=== PATIENT | male | born 1940 | race African-American/Black ===

== ENCOUNTER 2018-08-31 22:50 | Emergency (ER) | payer MEDICARE ==
[2018-08-31 23:39] LABS: #Eosinphils 0.1 thou/uL (0.0-0.7); #Lymphocytes 1.7 thou/uL (1.20-3.40); #Monocytes 0.5 thou/uL (0.11-0.59); #Neutrophils 4.8 thou/uL (1.40-6.50); %Basophils 0.4 % (0.0-1.0); %Eosinophils 1.3 % (0.0-10.0); %Lymphocytes 24.2 % (21.0-51.0); %Monocytes 6.5 % (0.0-10.0); %Neutrophils 67.6 % (42.0-75.0); Hemoglobin 13.7 g/dL (14.0-18.0); Mean Corpuscular HGB CONC 32.3 g/dL (32.0-36.0); Mean Corpuscular Hemoglobin 22.3 pg (27.0-31.0); Mean Corpuscular Volume 68.9 fL (78.0-98.0); Mean Platelet Volume 8.2 fL (7.4-10.4); Platelet Count 149 thou/uL (130-400); RBC Distribution Width 14.5 % (11.5-14.5); Red Blood Cell (RBC) Count 6.13 mill/uL (4.70-6.10); White Blood Cell (WBC) Count 7.1 thou/uL (4.8-10.8)
[2018-08-31 23:45] LABS: ALT (SGPT) 15 U/L (8-55); AST (SGOT) 26 U/L (5-34); Albumin 4.7 g/dL (3.4-4.8); Alkaline Phosphatase 75 U/L (40-150); Anion Gap 13 mmol/L (10-20); BUN (Urea Nitrogen) 28 mg/dL (8.4-25.7); Bilirubin, Total 0.5 mg/dL (0.2-1.2); Calc. Creatinine Clearance 0 mL/min (70-130); Calcium 9.7 mg/dL (7.8-10.44); Carbon Dioxide 23 mmol/L (23-31); Chloride 101 mmol/L (98-107); Estimated GFR-MDRD 46; Globulin 4.4 g/dL (2.4-3.5); Glucose 240 mg/dL (83-110); Lipase 54 U/L (8-78); Potassium 5.2 mmol/L (3.5-5.1); Protein, Total 9.1 g/dL (5.8-8.1); Sodium 132 mmol/L (136-145)
[2018-08-31] MEDS ORDERED: Pantoprazole 40 MG VIAL ONE (23:46)
[2018-09-01] MEDS ORDERED: Insulin Regular 300 UNITS/3 ML VIAL ONE (00:55)
--- NOTE | 2018-09-01 08:46 | ULT ---
PRELIMINARY REPORT/[facility]/EMERGENTY AFTER-HOURS PROCEDURE US Abdomen Limited, Right Upper Quadrant EXAM DATE/TIME: 09/01/2018 12:28 AM CLINICAL HISTORY: 77 years old, male; Pain and signs and symptoms; Constipation and nausea; Abdominal pain; Other: Epig astric to ruq pain TECHNIQUE: Real-time ultrasound of the abdomen with image documentation. Examination was focused on the right up per quadrant. COMPARISON: No relevant prior studies available. FINDINGS: Liver: 1 cm left lobe hepatic cyst. Hepatic steatosis. Gallbladder: Normal. No gallstones. There is no gallbladder wall thickening. Common bile duct: Normal. No stones. No dilation. Pancreas: Visualized pancreas is unremarkable. Right kidney: Normal. No mass. No hydronephrosis. IMPRESSION: No acute findings. Thank you for allowing us to participate in the care of your patient. Dictated and Authenticated by: Mitesh Penn MD 09/01/2018 1:32 AM Central Time ([place] & [place]) GALLBLADDER ULTRASOUND: Indication: Abdominal pain. FINDINGS/IMPRESSION: I agree with the above preliminary interpretation. Hepatic steatosis and hepatic cyst formation noted. There is no evidence of acute gallbladder pathology.
--- NOTE | 2018-09-05 13:27 | EKG ---
Test Reason : ABD PAIN Blood Pressure : / mmHG Vent. Rate : 058 BPM Atrial Rate : 058 BPM P-R Int : 188 ms QRS Dur : 088 ms QT Int : 400 ms P-R-T Axes : 052 014 044 degrees QTc Int : 392 ms Sinus bradycardia Otherwise normal ECG Confirmed by GILBERTO ENGLISH ([id number]), publication editor MARTHA SCHUSTER ([id number]) on 09/05/2018 1:26:40 PM Referred By: Confirmed By:GILBERTO ENGLISH
== END 2018-09-01 01:40 | disposition home or self-care (01) ==
LOC: ERS 22:50
DX: E87.5 Hyperkalemia (principal); R10.11 Right upper quadrant pain; E11.9 Type 2 diabetes mellitus without complications; E78.5 Hyperlipidemia, unspecified; I10 Essential (primary) hypertension; Z79.84 Long term (current) use of oral hypoglycemic drugs; Z79.899 Other long term (current) drug therapy
CPT/HCPCS: 76705; 80053; 83690; 85025; 93005; 96361; 96374; C9113; J1815

== ENCOUNTER 2018-09-11 17:45 | Observation (INO) | payer MEDICARE ==
[~2018-09-11 17:45] MED LIST: ISOVUE-370 76%-LOCM 1 ML ONE; Iopamidol 370 76% 50 ML VIAL FS ONE
[2018-09-11 18:15] LABS: Hemoglobin 12.5 g/dL (14.0-18.0); Mean Corpuscular HGB CONC 31.5 g/dL (32.0-36.0); Mean Corpuscular Hemoglobin 22.1 pg (27.0-31.0); Mean Platelet Volume 10.8 fL (7.4-10.4); Platelet Count 168 thou/uL (130-400); RBC Distribution Width 14.3 % (11.5-14.5); Red Blood Cell (RBC) Count 5.64 mill/uL (4.70-6.10); White Blood Cell (WBC) Count 3.4 thou/uL (4.8-10.8)
[2018-09-11 18:30] LABS: Eosinophils 1 % (0-10); Hypochromia SLIGHT = 6-15 cells (100X) (0-5/hpf); Lymphocytes 31 % (21-51); MDiff Complete? YES; Microcytosis SLIGHT = 6-15 cells (100X) (0-5/hpf); Monocytes 8 % (0-10); Neutrophil 59 % (42-75); Ovalocytes SLIGHT = 2-5 cells (100X) (0-1/hpf); PLT Morphology Comment Appears Adequate; Polychromasia SLIGHT = 2-3 cells (100X) (0-2/hpf)
[2018-09-11 18:38] LABS: ALT (SGPT) 28 U/L (8-55); AST (SGOT) 33 U/L (5-34); Albumin 4.7 g/dL (3.4-4.8); Alkaline Phosphatase 65 U/L (40-150); Anion Gap 14 mmol/L (10-20); BUN (Urea Nitrogen) 15 mg/dL (8.4-25.7); Bilirubin, Total 0.3 mg/dL (0.2-1.2); Calc. Creatinine Clearance 0 mL/min (70-130); Calcium 10.1 mg/dL (7.8-10.44); Carbon Dioxide 22 mmol/L (23-31); Chloride 105 mmol/L (98-107); Estimated GFR-MDRD 56; Globulin 4.1 g/dL (2.4-3.5); Glucose 136 mg/dL (83-110); Lipase 67 U/L (8-78); Potassium 5.3 mmol/L (3.5-5.1); Protein, Total 8.8 g/dL (5.8-8.1); Sodium 136 mmol/L (136-145)
[2018-09-11] MEDS ORDERED: Ondansetron PF 4 MG/2 ML Vial ONE (18:52)
[2018-09-11 19:52] LABS: Bilirubin Negative (Negative); Blood, Urine Negative (Negative); Clarity CLEAR (Clear); Glucose, Urine (Dipstick) Negative (Negative); Leukocyte Negative (Negative); Nitrite Negative (Negative); Protein, Urine (Dipstick) Negative (Neg-Trace); Specific Gravity, Urine 1.007 (1.002-1.036); Urobilinogen 0.2 mg/dL (0.2-1.0)
[2018-09-11] MEDS ORDERED: Acetaminophen 325 MG TAB PO PRN (21:47)
[2018-09-11] MEDS ORDERED: Ondansetron ODT 4 MG TAB SL PRN (21:47)
[2018-09-11] MEDS ORDERED: Sodium Chloride 0.9% 1,000 ML IV SCH (21:47)
[2018-09-11] MEDS ORDERED: Ondansetron PF 4 MG/2 ML Vial IVP PRN (21:47)
--- NOTE | 2018-09-11 22:17 | CT ---
CONTRAST ENHANCED CT IMAGES OF THE ABDOMEN AND PELVIS: 09/11/18 HISTORY: 77-year-old presents with history of abdominal pain with bloating and distention for one week. Contrast enhanced CT images of the abdomen and pelvis is obtained after administration of IV contrast . Comparison made to previous exam from 03/29/17. The lung bases are unremarkable. No evidence of free intraperitoneal air seen. Hepatic steatosis is noted. A cyst seen in the left hepatic lobe unchanged since the previous exam. The spleen is unremarkable. The pancreas is unremarkable. Adrenal glands and kidneys are unremarkable. No evidence of periaortic lymphadenopathy seen. Atherosclerotic calcifications of the abdominal aorta and iliac arteries seen. The small bowel is unremarkable. A moderate amount of stool is seen in the colon. No significant evidence of obstruction seen. Some thickening of the rectal mucosa is seen. Correlate with clinical exam. A normal appendix is visualized. Mild and lower lumbar facet degenerative changes and broad based disc bulges are present. IMPRESSION: 1. Moderate amount of stool in the colon. 2. Rectal mucosal thickening. POS: [facility]
[2018-09-11 22:18] VITALS: BMI 21.8
[2018-09-11] MEDS: Sodium Chloride 0.9% 1,000 ML IV SCH (23:29)
[2018-09-12 05:27] LABS: Anion Gap 9 mmol/L (10-20); BUN (Urea Nitrogen) 16 mg/dL (8.4-25.7); Calc. Creatinine Clearance 51 mL/min (70-130); Calcium 8.6 mg/dL (7.8-10.44); Carbon Dioxide 22 mmol/L (23-31); Chloride 110 mmol/L (98-107); Estimated GFR-MDRD 71; Glucose 170 mg/dL (83-110); Potassium 4.4 mmol/L (3.5-5.1); Sodium 137 mmol/L (136-145)
[2018-09-12] MEDS ORDERED: Prevnar 13-Val Conj/PF 0.5 ML SYRINGE IM ONE (09:00)
[2018-09-12] MEDS: Polyethylene Glycol 3350 17 GM Packet PO SCH ×2 (09:06→14:34)
[2018-09-12] MEDS: metFORMIN 500 MG TAB PO SCH ×2 (09:07→17:06)
[2018-09-12] MEDS: Glimepiride 4 MG TAB PO SCH (09:07)
[2018-09-12] MEDS: Metamucil PACK PO SCH ×2 (09:07→14:33)
[2018-09-12] MEDS: Sodium Chloride 0.9% 1,000 ML IV SCH (11:22)
[2018-09-12] MEDS: Amlodipine 10 MG TAB PO SCH (11:23)
[2018-09-12] MEDS: Hydrochlorothiazide 25 MG TAB PO SCH ×2 (11:23→20:18)
[2018-09-12] MEDS ORDERED: Loratadine 10 MG TAB PO SCH (11:30)
[2018-09-12] MEDS ORDERED: GoLYTELY 4,000 ml Bottle PO SCH (18:00)
--- NOTE | 2018-09-12 18:41 | CON ---
DATE OF CONSULTATION: 09/12/2018 REQUESTING PHYSICIAN: Dr. Brown. REASON FOR CONSULTATION: Abdominal pain. HISTORY OF PRESENT ILLNESS: Mauricio Nolan is a 77-year-old -[place] gentleman with no signif icant past gastrointestinal history. He has never undergone EGD or colonoscopy and there is no famil y history of GI illness that he knows. He was briefly hospitalized back in 03/2017 with abdominal pa in and there was some concern for possible bowel obstruction at that time; however, imaging did not r eally bear this out and the patient's symptoms quickly resolved. He never followed up with a gastroe nterologist at that time. More recently, he reports that for the past couple of months intermittentl y and then much worse over the past week and especially the past day, he has had recurrent abdominal pain. He says this is primarily in the upper abdomen, though sometimes it is more generalized. It c omes and goes. There is some associated nausea, though no vomiting. He has some difficulty describi ng his bowel frequency. It sounds like his stools are fairly irregular. He went a couple of days wi thout a bowel movement recently, but he had a good bowel movement earlier today and his abdominal manuela n persists. He does deny any melena or hematochezia. He will sometimes take some antacid on as need ed basis for chronic intermittent heartburn symptoms, but this has not been helping his recent pain o son the past few weeks. He actually saw one of my partners as an outpatient early last week and ther e was a plan to trial MiraLax and fiber supplementation with close followup. However, the patient st ates that this did not really help his pain either over the past week and thus he presented to the [facility]. A CT of the abdomen and pelvis from last night demonstrated a moderate amount of stool in th e colon and also some mucosal thickening in the rectum which is nonspecific. The small bowel, spleen and pancreas are unremarkable. There is a left hepatic lobe cyst which is unchanged over the past y ear and a half, really no acute findings. His LFTs and lipase are normal as well as essentially unre markable. CBC showing very mild anemia with hemoglobin 12.5. REVIEW OF SYSTEMS: Full review of systems including constitutional, head, eyes, ears, nose, throat, GI, , cardiovascular, respiratory, musculoskeletal, and neurologic systems is negative except as no zara in the HPI. ALLERGIES: No known drug allergies. OUTPATIENT MEDICATIONS: Benazepril/hydrochlorothiazide, amlodipine, metformin, famotidine 20 mg carol y, simvastatin, glimepiride. PAST MEDICAL HISTORY: Diabetes type 2, hyperlipidemia, hypertension, prior tobacco abuse, quit [facility] 25 years ago. FAMILY HISTORY: No known family history of gastrointestinal illness or malignancy. SOCIAL HISTORY: He quit smoking 25 years ago. No alcohol or drug abuse. PHYSICAL EXAMINATION: VITAL SIGNS: Temperature 97.5, pulse 55, blood pressure 122/72, 97% oxygen saturation on room air. GENERAL: A 77-year-old -[place] gentleman lying in bed comfortably, in no acute distress. MENTAL: He is alert and oriented, pleasant and conversational, can give a detailed history. SKIN: No jaundice, no rash visible or palpable. EYES: No scleral icterus. Extraocular movements intact. ENT: Mucous membranes moist, no oral lesions. LYMPH: No submandibular, supraclavicular lymphadenopathy. THYROID: Nontender to palpation. HEART: Regular rate and rhythm. LUNGS: Clear to auscultation bilaterally. ABDOMEN: Bowel sounds are present, soft. He is tender to palpation in the upper abdomen, but no gua rding, rebound tenderness. Lower abdomen is not tender to palpation. EXTREMITIES: No peripheral edema. VESSELS: Radial pulses 2+ bilaterally. NEUROLOGICAL: Cranial nerves II-XII intact bilaterally. No focal deficits. LABORATORY STUDIES: WBC 3.4, hemoglobin 12.5, MCV is 70.0, platelets 168. Sodium 137, potassium 4.4 , BUN 16, creatinine 1.21, glucose 163. LFTs normal with total bilirubin 0.3, alkaline phosphatase 6 5, AST 33, ALT 28, lipase normal at 67. CK normal at 105, albumin 4.7. Urinalysis negative. IMAGING STUDIES: CT of the abdomen and pelvis from last night demonstrates some hepatic steatosis an d a stable left hepatic lobe cyst, unchanged from 03/2017. Pancreas and spleen are unremarkable. Sm all bowel was unremarkable. There is a moderate amount of stool in the colon with no evidence of obs truction. There is some thickening of the rectal mucosa which is nonspecific. ASSESSMENT AND PLAN: 1. Generalized abdominal pain. 2. Abnormal CT scan of the rectum, showing nonspecific rectal thickening. I discussed with the patient that his workup so far has essentially been nonrevealing with regards to cause of his pain, consider upper GI mucosal pathology such as peptic ulcer disease. There is also this nonspecific rectal thickening on CT scan and he has never had a colonoscopy. We should go ahead and plan for EGD and colonoscopy this admission. We will administer bowel preparation tonight and p tracie for the procedure tomorrow morning. The patient understands and agrees with the plan. Further r ecommendations following endoscopy. Thank you for the consultation. Please call back anytime with questions or concerns.
[2018-09-12] MEDS ORDERED: Simvastatin 40 MG TAB PO SCH (21:00)
[2018-09-13] MEDS: Sodium Chloride 0.9% 1,000 ML IV SCH ×2 (00:02→11:32)
--- NOTE | 2018-09-13 00:43 | HP ---
DATE OF ADMISSION: 09/11/2018 REASON FOR ADMISSION AND CHIEF COMPLAINT: Abdominal pain. HISTORY OF PRESENT ILLNESS: Mr. Nolan is a 77-year-old male with past medical hist ory of hypertension and diabetes mellitus, who came with abdominal pain which is ongoing for 2 weeks, but got worse now, mainly over the right upper quadrant area. The patient also has some history of constipation, but no nausea or vomiting, no diarrhea, no fever. The patient's abdominal pain was get ting worse. It is not related to diet. Whether he eats or not, he still has pain. He is also havin g some abdominal bloating and distention for one week. The patient was evaluated. The patient came to the ER about a week ago and had an abdominal ultrasound done, which was unremarkable. The patient was recently sent home, but came back because of worsening of his abdominal pain. In the ER, the curtis brown was evaluated and found to have acute kidney injury as well, so he was given IV fluid bolus as well as Zofran and Bentyl and is admitted for further management. The patient was also found to have hyperkalemia. After admission to the hospital, the patient was on the borderline hypotension as wel l as sinus bradycardia, but not symptomatic. Currently, the pain is improved. He still has pain, bu t not like yesterday. PAST MEDICAL HISTORY: 1. Hypertension. 2. Diabetes mellitus. 3. Hyperlipidemia. 4. Chronic abdominal pain. 5. Gastroesophageal reflux disease. PAST SURGICAL HISTORY: Nothing significant. CURRENT MEDICATIONS: Benazepril with hydrochlorothiazide 20/12.5 b.i.d., MiraLax 17 grams daily, gli mepiride 4 mg daily, amlodipine 10 mg daily, metformin 1000 b.i.d., Nexium 40 mg daily, simvastatin 4 0 mg daily. ALLERGIES: No known drug allergies. FAMILY HISTORY: Nothing of interest. SOCIAL HISTORY: The patient lives with family. No history of smoking. No history of alcohol intake . REVIEW OF SYSTEMS: Cardiovascular: No chest pain. No shortness of breath. Respiratory: No fever or cough. Gastrointestinal: Has abdominal pain and constipation. No nausea or vomiting. Central n ervous system: No headache, no dizziness. PHYSICAL EXAMINATION: GENERAL: The patient is alert, awake, oriented x3. VITAL SIGNS: Temperature 98, pulse 50, respirations 20, blood pressure 97/50. HEENT: Head is normocephalic, atraumatic. Pupils are equal, round, and reactive to light. Nasophar ynx is pale and dry. Hard and soft palate. No lesions seen. SKIN: Skin turgor decreased. NECK: Supple. No JVD. LUNGS: Bilateral air entry present. No rales, no rhonchi. HEART: S1, S2 regular. ABDOMEN: Soft, tender mainly in the right upper quadrant area, also epigastrium and left upper quadr ant. No guarding, no rigidity. Bowel sounds present. RECTAL: Deferred. CENTRAL NERVOUS SYSTEM: No focal deficits. LABORATORY DATA AND X-RAY FINDINGS: CBC shows WBC 3.4, hemoglobin 12.5, hematocrit 39, platelets 168 . Metabolic panel: Sodium 136, potassium 5.3, chloride 105, CO2 of 23, urea nitrogen 15, creatinine 1.4, glucose 136. Serum lipase 67. CT of the abdomen showed moderate amount of stool with rectal m ucosal thickening. EKG shows sinus bradycardia with heart rate of 51, no acute ST-T wave changes see n. ASSESSMENT: 1. Acute on chronic abdominal pain. 2. Acute kidney injury. 3. Hyperkalemia. 4. Sinus bradycardia. 5. Hypotension. 6. Diabetes mellitus. 7. Hyperlipidemia. PLAN: 1. Vital signs q.4 hours. 2. Activity: As tolerated. 3. Allergies: No known drug allergies. 4. Diet: Regular. 5. IV fluids: Normal saline at 80 mL per hour. 6. Continue home medications. 7. Hold blood pressure medications. 8. Accu-Chek q.a.c. and at bedtime, sliding scale mild with regular insulin. 9. GI consult.
[2018-09-13 05:07] LABS: #Eosinphils 0.1 thou/uL (0.0-0.7); #Lymphocytes 1.2 thou/uL (1.20-3.40); #Monocytes 0.3 thou/uL (0.11-0.59); #Neutrophils 1.8 thou/uL (1.40-6.50); %Basophils 1.4 % (0.0-1.0); %Lymphocytes 36.7 % (21.0-51.0); %Monocytes 7.7 % (0.0-10.0); %Neutrophils 52.2 % (42.0-75.0); Hemoglobin 10.6 g/dL (14.0-18.0); Mean Corpuscular HGB CONC 31.4 g/dL (32.0-36.0); Mean Corpuscular Hemoglobin 21.9 pg (27.0-31.0); Mean Corpuscular Volume 69.8 fL (78.0-98.0); Mean Platelet Volume 11.3 fL (7.4-10.4); Platelet Count 134 thou/uL (130-400); RBC Distribution Width 14.1 % (11.5-14.5); Red Blood Cell (RBC) Count 4.85 mill/uL (4.70-6.10); White Blood Cell (WBC) Count 3.4 thou/uL (4.8-10.8)
[2018-09-13 05:26] LABS: Anion Gap 12 mmol/L (10-20); BUN (Urea Nitrogen) 9 mg/dL (8.4-25.7); Calc. Creatinine Clearance 60 mL/min (70-130); Calcium 8.8 mg/dL (7.8-10.44); Carbon Dioxide 23 mmol/L (23-31); Chloride 110 mmol/L (98-107); Estimated GFR-MDRD 84; Glucose 64 mg/dL (83-110); Potassium 3.8 mmol/L (3.5-5.1); Sodium 141 mmol/L (136-145)
[2018-09-13] MEDS: Glimepiride 4 MG TAB PO SCH (07:20)
[2018-09-13] MEDS: metFORMIN 500 MG TAB PO SCH (07:20)
[2018-09-13] MEDS: Amlodipine 10 MG TAB PO SCH (08:17)
[2018-09-13] MEDS: Hydrochlorothiazide 25 MG TAB PO SCH (08:18)
[2018-09-13] MEDS ORDERED: Loratadine 10 MG TAB PO SCH (09:00)
[2018-09-13 10:55] VITALS: BP 138/82; TEMP 97.8
--- NOTE | 2018-09-13 11:32 | OP ---
DATE OF CONSULTATION: 09/13/2018 SURGEON: Meng Dey M.D. [employer]OMBST[employer] SETTER SURGEON: None. PROCEDURES: 1. Esophagogastroduodenoscopy, diagnostic. 2. Colonoscopy, diagnostic. INDICATIONS: 1. Generalized abdominal pain. 2. Abnormal CT scan of the rectum, showing nonspecific rectal thickening. 3. Recent change in bowel toward constipation. MEDICATIONS: See anesthesia record. FINDINGS: After discussion of the risks, benefits and alternatives of the procedure, informed consen t was obtained and witnessed. Pre-endoscopic cardiopulmonary examination was satisfactory. Timeout was performed before sedation was achieved. Sedation was achieved with anesthesia assistance in the endoscopy unit. A Pentax adult upper endoscope was placed into the oropharynx and passed through the cricopharyngeus under direct visualization. The esophageal mucosa appeared normal throughout with a normal-appearing Z-line at 40 cm from the incisors. The endoscope was advanced into the stomach. F orward and retroflexed views of the entire gastric mucosa were obtained. The gastric mucosa appeared normal throughout. The endoscope was advanced through the pylorus and into the first and second por tions of the duodenum, which also appeared normal. The upper endoscope was completely withdrawn and the patient was repositioned. Digital rectal exam was performed which was unremarkable. A Pentax adult colonoscope was inserted in to the anus and passed forward to the cecum in the usual fashion. The cecal base was identified by t he appendiceal orifice as well as the ileocecal valve. The terminal ileum was intubated and the ilea l mucosa appeared normal. The colonoscope was then slowly withdrawn in a gradual and circumferential manner with careful examination of the entire colonic mucosa. The quality of the prep was good. Th e colonic mucosa appeared normal throughout. There were a few small scattered diverticula throughout the colon. Retroflexion in the rectum demonstrated some internal hemorrhoids. The colonoscope was completely withdrawn and the patient allowed to recover. The patient tolerated the procedure well. There were no immediate post-procedure complications. IMPRESSION: 1. Normal esophagogastroduodenoscopy. 2. Internal hemorrhoids. 3. A few scattered diverticula throughout the colon. 4. Otherwise, normal colonoscopy to the terminal ileum. RECOMMENDATIONS: 1. Advance diet. 2. Follow up in the GI clinic with Dr. Medina as planned. There were no barriers to hospital discharge from a GI perspective. Please call back anytime with qu estions or concerns.
[2018-09-13] MEDS ORDERED: PROPOFOL 200 MG/20 ML VIAL ONE (14:42)
--- NOTE | 2018-09-14 15:17 | DIS ---
DATE OF ADMISSION: 09/11/2018 DATE OF DISCHARGE: 09/13/2018 ADMITTING DIAGNOSES: 1. Acute on chronic abdominal pain, acute kidney injury. 2. Hyperkalemia. 3. Sinus bradycardia. 4. Hypertension. 5. Diabetes mellitus. 6. Hyperlipidemia. FINAL DIAGNOSES: 1. Acute on chronic abdominal pain, improved. 2. Negative gastrointestinal workup. 3. Acute kidney injury, improved. 4. Hyperkalemia, corrected. 5. Sinus bradycardia, improved. 6. Hypotension, resolved. 7. Diabetes mellitus. 8. Hyperlipidemia. BRIEF SUMMARY OF HOSPITAL COURSE: Mr. Nolan is a 77-year-old, male admitted with abdominal pain sometime but got worse in the last few days and came to the hospital for evaluation. He was found to have acute kidney injuries as well. He was started on IV fluids and admitted for further evaluation and management. The patient continued to have some pain, so a GI consult was done. The patient was seen by Dr. Dey. He says to do EGD and colonoscopy and is continued to have abdominal pain. The patient underwent EGD and colonoscopy. EGD and colonoscopy are essentially unremarkable, but his abdominal pain also resolved. His constipation has resolved and acute kidney injury improved as well. His BUN came down from 16 to 9, and creatinine came down from 1.48 to 1. Blood pressure remained stable. in view of improvement the patient is discharged. At the time of discharge, he was stable. PHYSICAL EXAMINATION: VITAL SIGNS: Stable. LUNGS: Clear. HEART: Sounds regular. ABDOMEN: Soft, nontender. Bowel sounds present. DISCHARGE MEDICATIONS: Include metformin 1000 mg b.i.d., glimepiride 4 mg daily , amlodipine 10 mg daily, benazepril with hydrochlorothiazide 20/12.5 b.i.d., simvastatin 40 mg daily, Nexium 40 mg daily, MiraLax 17 grams daily, Zyrtec 10 mg daily. FOLLOWUP: The patient will come for followup in 2 weeks. [facility]
== END 2018-09-13 14:05 | disposition home or self-care (01) ==
LOC: ERS 17:45 → 2SW 21:45
PROVIDERS: ADMIT Internal Medicine; ATTEND Internal Medicine
PROC: 0DJ08ZZ Inspection of Upper Intestinal Tract, Via Natural or Artificial Opening Endoscopic (ICD-10-PCS; principal; 2018-09-13)
PROC: 0DJD8ZZ Inspection of Lower Intestinal Tract, Via Natural or Artificial Opening Endoscopic (ICD-10-PCS; 2018-09-13)
DX: G89.29 Other chronic pain (principal); R10.84 Generalized abdominal pain; K64.8 Other hemorrhoids; K57.31 Diverticulosis of large intestine without perforation or abscess with bleeding; N17.9 Acute kidney failure, unspecified; E87.5 Hyperkalemia; I95.9 Hypotension, unspecified; E11.9 Type 2 diabetes mellitus without complications; E78.5 Hyperlipidemia, unspecified; K59.00 Constipation, unspecified; I10 Essential (primary) hypertension; K21.9 Gastro-esophageal reflux disease without esophagitis; K76.89 Other specified diseases of liver; Z87.891 Personal history of nicotine dependence; Z79.84 Long term (current) use of oral hypoglycemic drugs; Z79.899 Other long term (current) drug therapy
CPT/HCPCS: 43235; 45378; 74177; 80048 ×2; 80053; 81003; 82550; 82962 ×3; 83690; 85025 ×2; 90662; 90670; 93005; 96361 ×4; 96372; 96374; 99285; G0008; G0009; G0378 ×2; 36415; 36416; 90471; J2405; J2704

== ENCOUNTER 2018-09-18 09:30 | Emergency (ER) | payer MEDICARE ==
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
[2018-09-18] MEDS ORDERED: Acetaminophen 325 MG TAB ONE (12:11)
== END 2018-09-18 12:20 | disposition home or self-care (01) ==
LOC: ERS 09:30
DX: S53.401A Unspecified sprain of right elbow, initial encounter (principal); S20.211A Contusion of right front wall of thorax, initial encounter; S80.01XA Contusion of right knee, initial encounter; E11.9 Type 2 diabetes mellitus without complications; I10 Essential (primary) hypertension; E78.5 Hyperlipidemia, unspecified; Z79.899 Other long term (current) drug therapy; Z79.84 Long term (current) use of oral hypoglycemic drugs; V89.2XXA Person injured in unspecified motor-vehicle accident, traffic, initial encounter
CPT/HCPCS: 71045; 93005; G0390

== ENCOUNTER 2018-09-29 20:53 | Emergency (ER) | payer MEDICARE ==
[2018-09-29] MEDS ORDERED: Simethicone Chewable 80 MG TAB PO SCH (21:30)
[2018-09-29 21:53] LABS: #Eosinphils 0.1 thou/uL (0.0-0.7); #Lymphocytes 1.1 thou/uL (1.20-3.40); #Monocytes 0.3 thou/uL (0.11-0.59); #Neutrophils 2.9 thou/uL (1.40-6.50); %Basophils 0.2 % (0.0-1.0); %Eosinophils 2.7 % (0.0-10.0); %Lymphocytes 25.1 % (21.0-51.0); %Monocytes 6.5 % (0.0-10.0); %Neutrophils 65.5 % (42.0-75.0); Hemoglobin 12.3 g/dL (14.0-18.0); Mean Corpuscular HGB CONC 30.6 g/dL (32.0-36.0); Mean Corpuscular Hemoglobin 21.3 pg (27.0-31.0); Mean Corpuscular Volume 69.4 fL (78.0-98.0); Platelet Count 149 thou/uL (130-400); RBC Distribution Width 14.4 % (11.5-14.5); Red Blood Cell (RBC) Count 5.77 mill/uL (4.70-6.10); White Blood Cell (WBC) Count 4.4 thou/uL (4.8-10.8)
[2018-09-29 22:18] LABS: ALT (SGPT) 29 U/L (8-55); AST (SGOT) 24 U/L (5-34); Albumin 4.2 g/dL (3.4-4.8); Alkaline Phosphatase 73 U/L (40-150); Anion Gap 13 mmol/L (10-20); BUN (Urea Nitrogen) 22 mg/dL (8.4-25.7); Bilirubin, Total 0.3 mg/dL (0.2-1.2); Calc. Creatinine Clearance 0 mL/min (70-130); Calcium 9.5 mg/dL (7.8-10.44); Carbon Dioxide 22 mmol/L (23-31); Chloride 105 mmol/L (98-107); Estimated GFR-MDRD 57; Globulin 3.9 g/dL (2.4-3.5); Glucose 138 mg/dL (83-110); Potassium 4.9 mmol/L (3.5-5.1); Protein, Total 8.1 g/dL (5.8-8.1); Sodium 135 mmol/L (136-145)
== END 2018-09-29 23:50 | disposition home or self-care (01) ==
LOC: ERS 20:53
DX: R14.0 Abdominal distension (gaseous) (principal); R10.9 Unspecified abdominal pain; E11.9 Type 2 diabetes mellitus without complications; E78.5 Hyperlipidemia, unspecified; I10 Essential (primary) hypertension; Z79.899 Other long term (current) drug therapy; Z79.84 Long term (current) use of oral hypoglycemic drugs
CPT/HCPCS: 36415; 80053; 85025; 93005; 96372

== ENCOUNTER 2021-06-01 01:09 | Emergency (ER) | payer MEDICARE ==
[2021-06-01 02:16] LABS: Hemoglobin 11.7 g/dL (14.0-18.0); Mean Corpuscular HGB CONC 30.8 g/dL (32.0-36.0); Mean Corpuscular Volume 71.7 fL (78.0-98.0); Mean Platelet Volume 11.9 fL (7.4-10.4); Platelet Count 105 thou/uL (130-400); RBC Distribution Width 14.3 % (11.5-14.5); Red Blood Cell (RBC) Count 5.32 mill/uL (4.70-6.10); White Blood Cell (WBC) Count 3.9 thou/uL (4.8-10.8)
[2021-06-01 02:32] LABS: ALT (SGPT) 15 U/L (8-55); AST (SGOT) 26 U/L (5-34); Albumin 4.1 g/dL (3.4-4.8); Anion Gap 15 mmol/L (10-20); BUN (Urea Nitrogen) 32 mg/dL (8.4-25.7); Bilirubin, Total 0.5 mg/dL (0.2-1.2); Calc. Creatinine Clearance 0 mL/min (70-130); Calcium 9.2 mg/dL (7.8-10.44); Carbon Dioxide 16 mmol/L (23-31); Chloride 113 mmol/L (98-107); Globulin 3.9 g/dL (2.4-3.5); Glucose 141 mg/dL (83-110); Potassium 5.4 mmol/L (3.5-5.1); Sodium 139 mmol/L (136-145)
[2021-06-01 02:36] LABS: Band 1 % (5-11); Lymphocytes 25 % (21-51); MDiff Complete? YES; Monocytes 9 % (0-10); Neutrophil 65 % (42-75); Platelet Morphology Comment Appears Decreased
[2021-06-01 03:29] LABS: Alkaline Phosphatase 55 U/L (40-110)
[2021-06-01 05:10] LABS: Anion Gap 11 mmol/L (10-20); BUN (Urea Nitrogen) 29 mg/dL (8.4-25.7); Calc. Creatinine Clearance 0 mL/min (70-130); Calcium 8.9 mg/dL (7.8-10.44); Carbon Dioxide 19 mmol/L (23-31); Chloride 114 mmol/L (98-107); Glucose 115 mg/dL (83-110); Potassium 5.1 mmol/L (3.5-5.1); Sodium 139 mmol/L (136-145)
== END 2021-06-01 05:30 | disposition home or self-care (01) ==
LOC: ERS 01:09
DX: D61.818 Other pancytopenia (principal); R14.0 Abdominal distension (gaseous); E11.39 Type 2 diabetes mellitus with other diabetic ophthalmic complication; H42 Glaucoma in diseases classified elsewhere; R07.9 Chest pain, unspecified; E78.5 Hyperlipidemia, unspecified; I10 Essential (primary) hypertension; Z79.84 Long term (current) use of oral hypoglycemic drugs; Z79.899 Other long term (current) drug therapy
CPT/HCPCS: 36415; 71045; 80053; 82274; 83880; 84484; 85025; 93005

== ENCOUNTER 2023-09-20 00:52 | Emergency (ER) | payer MEDICARE, OTHER ==
[2023-09-20] MEDS ORDERED: Morphine 4 MG/ML VIAL ONE (01:10)
[2023-09-20 02:36] LABS: #Monocytes 0.2 thou/uL (0.11-0.59); #Neutrophils 6.1 thou/uL (1.40-6.50); %Basophils 0.3 % (0.0-1.0); %Eosinophils 0.1 % (0.0-10.0); %Lymphocytes 6.1 % (21.0-51.0); %Monocytes 3.4 % (0.0-10.0); Hematocrit 45.7 % (42.0-52.0); Hemoglobin 14.1 g/dL (14.0-18.0); Mean Corpuscular HGB CONC 30.9 g/dL (32.0-36.0); Mean Corpuscular Hemoglobin 22.1 pg (27.0-31.0); Mean Corpuscular Volume 71.6 fl (78.0-98.0); Platelet Count 112 10x3/uL (130-400); RBC Distribution Width 16.6 % (11.5-14.5); Red Blood Cell (RBC) Count 6.38 mill/uL (4.70-6.10); White Blood Cell (WBC) Count 6.8 10x3/uL (4.8-10.8)
[2023-09-20 02:59] LABS: ALT (SGPT) 16 U/L (8-55); AST (SGOT) 19 U/L (5-34); Albumin 4.4 g/dL (3.4-4.8); Alkaline Phosphatase 70 U/L (40-110); Anion Gap 19 mmol/L (10-20); BUN (Urea Nitrogen) 21 mg/dL (8.4-25.7); Bilirubin, Total 0.4 mg/dL (0.2-1.2); Calc. Creatinine Clearance 0 mL/min (70-130); Calcium 8.8 mg/dL (7.8-10.44); Carbon Dioxide 20 mmol/L (23-31); Chloride 104 mmol/L (98-107); Estimated GFR 41; Glucose 278 mg/dL (83-110); Lipase 34 U/L (8-78); Potassium 5.5 mmol/L (3.5-5.1); Protein, Total 8.4 g/dL (5.8-8.1); Sodium 137 mmol/L (136-145)
[2023-09-20 03:10] LABS: Anisocytosis SLIGHT = 6-15 cells HPF (0-5); CellaVision Operator ID lab.sh2; Hypochromia SLIGHT = 6-15 cells HPF (0-5); Microcytosis SLIGHT = 6-15 cells HPF (0-5); Ovalocytes SLIGHT = 2-5 cells HPF (0-1); Platelet Adequacy Comment Platelets Decreased; Tear Drops SLIGHT = 2-5 cells HPF (0-1)
[2023-09-20 03:38] LABS: Troponin I 0.011 ng/mL (< 0.028)
[2023-09-20 05:07] LABS: Bilirubin Negative (Negative); Blood, Urine 1+ (Negative); Clarity Clear (Clear); Glucose, Urine (Dipstick) 300 mg/dL (Negative); Ketone, Urine Negative (Negative); Leukocyte Negative Leu/uL (Negative); Nitrite Negative (Negative); Protein, Urine (Dipstick) 300 mg/dL (Neg-Trace); Specific Gravity, Urine 1.017 (1.002-1.036); Urobilinogen Normal mg/dL (Less than 2)
[2023-09-20] MEDS ORDERED: Dicyclomine 20 MG TAB ONE (05:09)
[2023-09-20 05:20] LABS: Bacteria/HPF 3+ HPF (None Seen); Squamous Epithelial 0-3 HPF (0-3)
[2023-09-20 05:21] LABS: CAUTI Indications for Culture Pelvic or flank pain; RBC/HPF 0-3 HPF (0-3); WBC/HPF 0-3 HPF (0-3)
[2023-09-20 05:22] LABS: Urine Culture Reflex No No
[2023-09-20] MEDS ORDERED: Iopamidol-370 76% 500 ML MDV (1 ML CHARGE) ONE (13:54)
== END 2023-09-20 05:15 | disposition home or self-care (01) ==
LOC: ERS 00:52
DX: R10.84 Generalized abdominal pain (principal); I10 Essential (primary) hypertension; E11.39 Type 2 diabetes mellitus with other diabetic ophthalmic complication; H42 Glaucoma in diseases classified elsewhere; Z87.891 Personal history of nicotine dependence
CPT/HCPCS: 74177; 80053; 81001; 83605; 83690; 84484; 85025; 93005; 96361; 96374; J2270; Q9967

== ENCOUNTER 2024-02-05 21:58 | Emergency (ER) | payer MEDICARE ==
[2024-02-06 00:35] LABS: #Basophils 0.03 10x3/uL (0.0-0.2); %Basophils 0.8 % (0.0-1.0); %Eosinophils 1.3 % (0.0-10.0); %Lymphocytes 28.2 % (21.0-51.0); %Monocytes 7.2 % (0.0-10.0); %Neutrophils 62.2 % (42.0-75.0); Hematocrit 41.4 % (42.0-52.0); Hemoglobin 13.1 g/dL (14.0-18.0); Mean Corpuscular HGB CONC 31.6 g/dL (32.0-36.0); Mean Corpuscular Hemoglobin 21.9 pg (27.0-31.0); Mean Corpuscular Volume 69.2 fL (78.0-98.0); Mean Platelet Volume 11.2 fL (7.4-10.4); Platelet Count 146 10x3/uL (130-400); RBC Distribution Width 15.5 % (11.5-14.5); Red Blood Cell (RBC) Count 5.98 mill/uL (4.70-6.10)
[2024-02-06 00:51] LABS: ALT (SGPT) 15 U/L (8-55); AST (SGOT) 18 U/L (5-34); Albumin 4.1 g/dL (3.4-4.8); Alkaline Phosphatase 73 U/L (40-110); Anion Gap 15 mmol/L (10-20); BUN (Urea Nitrogen) 20 mg/dL (8.4-25.7); Bilirubin, Total 0.3 mg/dL (0.2-1.2); Calc. Creatinine Clearance 0 mL/min (70-130); Calcium 9.8 mg/dL (7.8-10.44); Carbon Dioxide 24 mmol/L (23-31); Chloride 102 mmol/L (98-107); Estimated GFR 42; Globulin 4.4 g/dL (2.4-3.5); Glucose 334 mg/dL (83-110); Potassium 4.6 mmol/L (3.5-5.1); Protein, Total 8.5 g/dL (5.8-8.1); Sodium 136 mmol/L (136-145)
[2024-02-06 01:06] LABS: Anisocytosis SLIGHT = 6-15 cells HPF (0-5); Microcytosis SLIGHT = 6-15 cells HPF (0-5); Ovalocytes SLIGHT = 2-5 cells HPF (0-1); Platelet Adequacy Comment Platelets Normal
== END 2024-02-06 01:10 | disposition home or self-care (01) ==
LOC: ERS 21:58
DX: K59.00 Constipation, unspecified (principal); E11.65 Type 2 diabetes mellitus with hyperglycemia; Z55.6 Problems related to health literacy; Z87.891 Personal history of nicotine dependence; E11.9 Type 2 diabetes mellitus without complications; I10 Essential (primary) hypertension
CPT/HCPCS: 36415; 74022; 80053; 85025